=== PATIENT | male | born 1930 | race Caucasian/White ===

== ENCOUNTER 2016-10-16 08:32 | Day surgery (SDC) | payer MEDICARE, OTHER ==
[~2016-10-16] VITALS: Ht 177.8 cm; Wt 78.0 kg
[~2016-10-16 08:32] MED LIST: ESOM40CA PO; LISI-170 PO; NIAC500C3 PO; OMEG10007 PO; PRED5TAB PO; SIMV40TA3 PO
[2016-10-16] MEDS ORDERED: SODIUM CHLORIDE 0.9% 1,000 ML IV SCH ×2 (10:01→11:04)
[2016-10-16 10:04] VITALS: BP 130/72
[2016-10-16] MEDS ORDERED: MIDAZOLAM 1 MG/ML, 5ML ONE (10:19)
[2016-10-16] MEDS ORDERED: FENTANYL PF 100 MCG/2ML ONE (10:19)
[2016-10-16] MEDS ORDERED: VERAPAMIL 2.5 MG/ML, 2ML ONE (10:20)
[2016-10-16] MEDS ORDERED: TICAGRELOR 90 MG TABLET ONE (10:20)
[2016-10-16] MEDS ORDERED: HEPARIN 1,000 UNITS/ML, 10ML ONE (10:20)
[2016-10-16] MEDS ORDERED: LIDOCAINE 2%, 20ML ONE (10:20)
[2016-10-16] MEDS ORDERED: BIVALIRUDIN 250 MG ONE (10:20)
[2016-10-16] MEDS ORDERED: ASPI-515 PO (10:26)
[2016-10-16] MEDS ORDERED: ISOS120T2 PO (10:31)
[2016-10-16] MEDS ORDERED: METO25TA91 PO (10:32)
[2016-10-16] MEDS ORDERED: SIMV40TA3 PO (10:34)
[2016-10-16] MEDS ORDERED: ESOM40CA PO (10:34)
== END 2016-10-16 14:10 | disposition home or self-care (01) ==
LOC: CACL 08:32
PROVIDERS: ATTEND Internal Medicine Cardiovascular Disease
DX: I25.10 Atherosclerotic heart disease of native coronary artery without angina pectoris (principal); E78.5 Hyperlipidemia, unspecified; I10 Essential (primary) hypertension; I71.9 Aortic aneurysm of unspecified site, without rupture; E11.9 Type 2 diabetes mellitus without complications; Z87.891 Personal history of nicotine dependence; Z79.82 Long term (current) use of aspirin; Z88.0 Allergy status to penicillin
CPT/HCPCS: 93458; 99156; 99157; C1769; C1894; J1644; J2250; J3010; J3490; Q9967; J0583

== ENCOUNTER → 2016-10-29 | Outpatient (CLI) | payer MEDICARE, OTHER ==
[~2016-10-29] MED LIST changes: +ASPI-515 PO; +ISOS120T2 PO; +METO25TA91 PO
== END | disposition home or self-care (01) ==
LOC: CARD 12:21
PROVIDERS: ATTEND Internal Medicine Cardiovascular Disease
DX: R06.00 Dyspnea, unspecified (principal); J44.9 Chronic obstructive pulmonary disease, unspecified
CPT/HCPCS: 94060; 94726; 94729